=== PATIENT | female | born 1985 | race Caucasian/White ===

== ENCOUNTER 2023-07-29 09:33 | Emergency (ER) | payer BC, SELFPAY ==
[2023-07-29 09:45] VITALS: BP 112/73; PULSE 80; RESP 16; TEMP 37.4; O2SAT 99
--- NOTE | 2023-07-29 10:01 | ED.FEMALEGU ---
HPI - Female Genitourinary General Chief complaint: Urogenital-Female Stated complaint: Uti Symptoms Time Seen by Provider: 07/29/23 10:01 Source: patient Mode of arrival: ambulatory Limitations: no limitations History of Present Illness HPI Narrative: 38-year-old female presents with complaint of urinary frequency, dysuria starting today. Reports for the past 2 days she had right lower abdominal pain. States pain was mild intermittent. Yesterday began having right flank pain and then continued urinary symptoms today. Afebrile. Denies nausea vomiting. Reports history multiple urinary tract infections. Denies . All systems reviewed and negative except as noted above. Related Data Home Medications Medication Instructions Recorded Confirmed metoprolol tartrate 25 mg tablet 25 mg PO BID 07/29/23 07/29/23 trazodone 50 mg tablet 50 mg PO HS 07/29/23 07/29/23 Allergies Allergy/AdvReac Type Severity Reaction Status Date / Time No Known Allergies Allergy Verified 07/29/23 09:43 Review of Systems Review of Systems: CONSTITUTIONAL: Denies fever, chills, or sweats. EYES: Denies visual changes, redness, or discharge. ENT: Denies rhinorrhea, congestion, sore throat, or otalgia. CARDIOVASCULAR: Denies chest pain, palpitations, or edema. RESPIRATORY: Denies cough or dyspnea. GASTROINTESTINAL: Denies abdominal pain, nausea, vomiting, or diarrhea. GENITOURINARY: Reports dysuria, frequency. Denies hematuria. SKIN: Denies rash or itching. MUSCULOSKELETAL: Denies back pain, joint pain, or myalgia. NEUROLOGIC: Denies headache, numbness, or weakness. PSYCHIATRIC: Denies anxiety or depression. All other systems reviewed are negative, except as documented in HPI. PMFSH Comments At time of signature, agree with nursing past medical, surgical, social and family history. There is no relevant family history pertinent to the presenting complaint. Exam Narrative: GENERAL: This is a well-nourished, well-developed patient, in no apparent distress. HEAD: normocephalic, atraumatic. EYES: PERRL. Sclera clear/white. Vision is grossly intact. EARS: External ears normal NOSE: External nose normal NECK: Neck supple, non-tender without lymphadenopathy, masses or thyromegaly. CARDIOVASCULAR: Regular rate and rhythm without murmurs, gallops, or rubs. RESPIRATORY: Clear to auscultation. Breath sounds equal bilaterally. No wheezes, rales, or rhonchi. SKIN: warm, Dry, intact with no suspicious lesions or rash, good texture and turgor. NEURO: awake, alert, and oriented to person, place and time. There were no obvious focal neurologic abnormalities. EXTREMITIES: No joint tenderness, effusion, or edema noted. Course Course Level of Care: Express Care Visit Vital Signs Vital signs: Vital Signs Temperature 37.4 C 07/29/23 09:45 Pulse Rate 80 07/29/23 09:45 Respiratory Rate 16 07/29/23 09:45 Blood Pressure 112/73 07/29/23 09:45 Pulse Oximetry 99 07/29/23 09:45 Temperature 37.4 C 07/29/23 09:45 Pulse Rate 80 07/29/23 09:45 Respiratory Rate 16 07/29/23 09:45 Blood Pressure 112/73 07/29/23 09:45 Pulse Oximetry 99 07/29/23 09:45 Reviewed MDM - Female Genitourinary MDM Narrative Medical decision making narrative: Patient is aware of diagnosis, understands and agrees to treatment plan. Anticipatory guidance given. Patient agrees to follow-up as directed and is aware of reasons to seek care at the emergency department. Portions of this record may have been created with voice recognition software Differential Diagnosis Differential diagnosis: Likely urinary tract infection Lab Data Labs: Urine Glucose Negative Reference Range: Negative Urine Bilirubin Negative Reference Range: Negative Urine Ketone Negative
== END 2023-07-29 10:06 | disposition home or self-care (01) ==
PROVIDERS: Emergency Provider Nurse Practitioner Family
DX: N39.0 Urinary tract infection, site not specified (principal); F32.A Depression, unspecified
CPT/HCPCS: 81003; 87086; 99213; G0463

== ENCOUNTER 2023-08-14 00:21 | Emergency (ER) | payer BC, SELFPAY ==
[2023-08-14 00:37] VITALS: BP 124/66; PULSE 91; RESP 16; TEMP 37.2; O2SAT 99
--- NOTE | 2023-08-14 00:43 | ECG_ITS ---
SEE SCANNED COPY FOR CONFIRMED REPORT MTDD
[2023-08-14 00:46] VITALS: BP 105/74; PULSE 81; RESP 14; O2SAT 98
[2023-08-14 01:04] VITALS: RESP 14; O2SAT 100
[2023-08-14 01:15] LABS: Basophils Percent Auto 0.4 % (0.2-1.2); Eosinophils Percent Auto 0.4 % (0-4.4); Hematocrit 37.2 % (37.0-47.0); Hemoglobin 12.9 g/dL (12.0-15.0); Immature Granulocyte Absolute 0.01 K/mm3 (0.00-0.031); Immature Granulocyte Percent A 0.2 % (0-0.5); Lymphocytes Absolute Auto 1.55 K/mm3 (0.9-3.2); Lymphocytes Percent Auto 33.5 % (18.3-44.2); Mean Corpuscular HGB Conc 34.7 g/dl (32-36); Mean Corpuscular Hemoglobin 32.7 pg (26-34); Mean Corpuscular Volume 94.2 fl (80-100); Mean Platelet Volume 9.3 fl (7.4-10.4); Monocytes Absolute Auto 0.4 K/mm3 (0.1-0.6); Monocytes Percent Auto 8.9 % (2.6-8.5); Neutrophils Absolute Auto 2.6 K/mm3 (1.3-6.7); Neutrophils Percent Auto 56.6 % (45.5-73.1); Platelet Count Result 193 k/mm3 (150-375); Red Blood Count 3.95 M/mm3 (4.2-5.4); Red Cell Distribution Width 12.2 % (11.5-14.5); White Blood Count 4.6 K/mm3 (4.5-10.0)
[2023-08-14 01:23] LABS: Alanine Aminotransferase 15 U/L (6-35); Albumin Level 4.5 g/dL (3.5-5.1); Alkaline Phosphatase 50 U/L (38-126); Anion Gap 11 mmol/L (4-12); Aspartate Amino Transferase 25 U/L (14-36); Bilirubin,Total 0.5 mg/dL (0.2-1.3); Blood Urea Nitrogen 12 mg/dL (7-17); Calcium 9.4 mg/dL (8.4-10.2); Carbon Dioxide 24 mmol/L (22-30); Chloride 106 mmol/L (98-107); Estimated CRCL calculation 78 ml/min; Estimated Glomerular Filt Rate > 60; Glucose 107 mg/dL (65-110); Potassium 4.1 mmol/L (3.4-5.0); Sodium 141 mmol/L (137-145)
[2023-08-14 01:39] LABS: Strep Group A RT-PCR NOT DETECTED (Negative)
--- NOTE | 2023-08-14 01:46 | ED.GENADULT ---
HPI - General Adult General Chief complaint: Unspecified Stated complaint: Rash on arms and hands Time Seen by Provider: 08/14/23 01:07 History of Present Illness HPI narrative: Patient is a 38-year-old female who presents to the emergency department this evening complaining of a rash. Patient states that symptoms initially started with a fever Tuesday night to morning. Fever has been responsive to Tylenol and Motrin. Patient states that yesterday morning she noticed a rash which started on the soles of her palms and feet. Patient denies any exposure to any viruses or being around any kids. 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 Patient also states that she also has painful sores all over her mouth mild sore throat. She denies any additional symptoms or concerns at this time. Related Data Home Medications Medication Instructions Recorded Confirmed metoprolol tartrate 25 mg tablet 25 mg PO BID 07/29/23 07/29/23 trazodone 50 mg tablet 50 mg PO HS 07/29/23 07/29/23 Allergies Allergy/AdvReac Type Severity Reaction Status Date / Time No Known Allergies Allergy Verified 07/29/23 09:43 Review of Systems Review of Systems: All systems are reviewed and are negative unless stated otherwise in the HPI. Exam Narrative: General: Alert, awake, afebrile, in no acute distress. HEENT: PERRL, no rhinorrhea, no post nasal drip, sores noted in the anterior arm posterior oropharynx including view call membrane. Neck: Trachea midline, no JVD, no lymphadenopathy. Cardiovascular: Regular rate and rhythm, no murmurs, rubs or gallops, no peripheral edema. Respiratory: Clear to auscultation bilaterally, no tachypnea, no wheezing, no rhonchi, no rubs, no respiratory distress. Abdomen: Soft, nontender, nondistended, no rebound, no guarding, no peritoneal signs. Musculoskeletal: No joint swelling or deformity, normal muscle tone. Skin: Diffuse maculopapular rash involving the soles of the hand and feet along with patient's bilateral upper and lower extremity. Psychiatric: Alert and oriented, normal behavior and judgment for situation. Neurological: Alert and oriented to person, place, and time. Follows all commands. No focal deficits, speech is clear and fluent. Course Vital Signs Vital signs: Vital Signs Temperature 99 F 05/19/24 00:37 Pulse Rate 91 08/14/23 00:37 Respiratory Rate 16 08/14/23 00:37 Blood Pressure 124/66 08/14/23 00:37 Pulse Oximetry 99 08/14/23 00:37 Oxygen Delivery Room Air 08/14/23 00:37 Temperature 99 F 08/14/23 00:37 Pulse Rate 81 08/14/23 00:46 Respiratory Rate 14 08/14/23 01:04 Blood Pressure 105/74 08/14/23 00:46 Pulse Oximetry 100 08/14/23 01:04 Oxygen Delivery Room Air 08/14/23 00:37 Medical Decision Making MDM Narrative Medical decision making narrative: The patient was evaluated by myself in the emergency department. History is obtained from patient who is an independent historian and physical exam was performed. External medical records were reviewed at this time. IV was established and pertinent tests were ordered. Laboratory results obtained revealing no acute process. Differential diagnosis considerations include acute viral syndrome, [id number] disease, recommended spotted fever and symptoms, patient denies any concern for STDs including syphilis and denies any recent tick bites. Comorbidities impacting this visit include working as an RN increasing exposure to viral syndromes. I have evaluated and discussed social determinants of health with the patient that could potentially impact subsequent diagnosis and treatment plans. On repeat assessment of the patient, reevaluation revealed that the patient is doing well and is in no acute distress. Patient symptoms have remained stable since she arrived to our emergency department. Repeat vital signs were all reviewed and noted t
[2023-08-14 02:41] VITALS: BP 112/75; PULSE 82; RESP 13; O2SAT 99
== END 2023-08-14 02:44 | disposition home or self-care (01) ==
PROVIDERS: Emergency Provider Emergency Medicine; PCP Physician Assistant
DX: B08.4 Enteroviral vesicular stomatitis with exanthem (principal)
CPT/HCPCS: 36415; 80053; 81025; 85025; 87651; 93005; 99283